=== PATIENT | female | born 1990 | race Caucasian/White ===

== ENCOUNTER 2023-01-01 12:46 | Emergency (ER) | payer OTHER ==
[2023-01-01 13:10] LABS: BASOPHILS % (AUTO) 0.3 %; EOSINOPHILS # (AUTO) 0.2 10^3/uL (0.0-0.7); HCT - HEMATOCRIT 40.5 % (37.0-47.0); HGB - HEMOGLOBIN 13.6 g/dL (12.0-16.0); LYMPHOCYTES # (AUTO) 1.3 10^3/uL (1.5-3.5); LYMPHOCYTES % (AUTO) 13.8 %; MEAN CORPUSCULAR HEMOGLOBIN 28.8 pg (27.0-31.0); MEAN CORPUSCULAR HGB CONC 33.6 g/dL (32.0-36.0); MEAN CORPUSCULAR VOLUME 85.8 fL (81.0-99.0); MEAN PLATELET VOLUME 10.1 fL (7.9-10.8); MONOCYTES % (AUTO) 10.2 %; NEUTROPHILS # (AUTO) 6.9 10^3/uL (1.5-6.6); NEUTROPHILS % (AUTO) 73.3 %; PLT - PLATELET COUNT 302 10^3/uL (130-450); RED BLOOD COUNT 4.72 10^6/uL (4.20-5.40); RED CELL DISTRIBUTION WIDTH 14.3 % (12.0-15.0); WHITE BLOOD COUNT 9.4 x10^3/uL (4.8-10.8)
[2023-01-01 13:24] LABS: ALBUMIN 4.2 g/dL (3.2-5.5); ALBUMIN/GLOBULIN RATIO 1.2 (1.0-2.2); BILIRUBIN,TOTAL 0.4 mg/dL (0.2-1.0); CREATININE 0.6 mg/dL (0.4-1.0); TOTAL PROTEIN 7.7 g/dL (6.7-8.2)
--- NOTE | 2023-01-01 15:21 | ED Physician Documentation ---
History of Present Illness - Stated complaint Stated Complaint: FEMALE - Chief complaint Chief Complaint: Abd Pain - History obtained from History obtained from: Patient - History of Present Illness Timing: Today Pain level max: 0 Pain level now: 0 - Additonal information Additional information: Patient is a 32-year-old female who presents to the emergency department with vaginal bleeding. She is approximately 5 weeks . She has been undergoing IVF. Has not had a previous . No pelvic pain. Nothing makes it better or worse. She states that there were 2 "gushes" of blood earlier today. Review of Systems Constitutional: denies: Fever Respiratory: denies: Cough GI: denies: Abdominal Pain, Nausea, Vomiting, Diarrhea Skin: denies: Rash Musculoskeletal: denies: Neck pain, Back pain Neurologic: denies: Headache PD PAST MEDICAL HISTORY - Past Medical History Past Medical History: No - Past Surgical History Past Surgical History: No - Present Medications Home Medications: Ambulatory Orders Medication Instructions Recorded Confirmed Levothyroxine Sodium [Synthroid] 25 mcg PO DAILY 01/01/23 01/01/23 Magdalene 28 Days` 1 applic PO DAILY 01/01/23 01/01/23 - Allergies Allergies/Adverse Reactions: Allergies Allergy/AdvReac Type Severity Reaction Status Date / Time No Known Drug Allergies Allergy Verified 01/01/23 12:50 - Living Situation Living Situation: reports: With family Living Arrangement: reports: At home - Social History Does the pt smoke?: No Does the pt have substance abuse?: No PD ED PE NORMAL - Vitals Vital signs reviewed: Yes - General General: Alert and oriented X 3, No acute distress - HEENT HEENT: PERRL, Moist mucous membranes - Neck Neck: Supple, no meningeal sign - Cardiac Cardiac: RRR, Strong equal pulses - Respiratory Respiratory: No respiratory distress, Clear bilaterally - Abdomen Abdomen: Soft, Non tender, Non distended - Back Back: No CVA TTP, No spinal TTP - Derm Derm: Warm and dry - Extremities Extremities: No edema, No calf tenderness / cord - Neuro Neuro: Alert and oriented X 3 - Psych Psych: Normal mood, Normal affect Results - Vitals Vitals: Vital Signs - 24 hr 01/01/23 01/01/23 01/01/23 12:50 15:29 15:55 Temperature 36.5 C Heart Rate 84 64 Respiratory 16 16 16 Rate Blood Pressure 119/74 116/67 O2 Saturation 100 97 Oxygen O2 Source Room air - Labs Labs: Laboratory Tests 01/01/23 01/01/23 01/01/23 13:05 13:05 13:05 WBC 9.4 RBC 4.72 Hgb 13.6 Hct 40.5 MCV 85.8 MCH 28.8 MCHC 33.6 RDW 14.3 Plt Count 302 MPV 10.1 Neut # (Auto) 6.9 H Lymph # (Auto) 1.3 L [place] # (Auto) 1.0 Eos # (Auto) 0.2 Baso # (Auto) 0.0 Absolute Nucleated RBC 0.00 Nucleated RBC % 0.0 Sodium 136 Potassium 4.0 Chloride 105 Carbon Dioxide 25 Anion Gap 6.0 BUN 8 Creatinine 0.6 Estimated GFR (MDRD) 115 Glucose 106 H Calcium 9.0 Total Bilirubin 0.4 AST 22 ALT 19 Alkaline Phosphatase 82 Total Protein 7.7 Albumin 4.2 Globulin 3.5 Albumin/Globulin Ratio 1.2 Lipase 44 HCG, Quant 39885.00 Urine Color Urine Clarity Urine pH Ur Specific [place] Urine Protein Urine Glucose (UA) Urine Ketones Urine Occult Blood Urine Nitrite Urine Bilirubin Urine Urobilinogen Ur Leukocyte Esterase Urine RBC Urine WBC Ur Squamous Epith Cells Urine Bacteria Ur Microscopic Review Urine Culture Comments 01/01/23 15:10 WBC RBC Hgb Hct MCV MCH MCHC RDW Plt Count MPV Neut # (Auto) Lymph # (Auto) [place] # (Auto) Eos # (Auto) Baso # (Auto) Absolute Nucleated RBC Nucleated RBC % Sodium Potassium Chloride Carbon Dioxide Anion Gap BUN Creatinine Estimated GFR (MDRD) Glucose Calcium Total Bilirubin AST ALT Alkaline Phosphatase Total Protein Albumin Globulin Albumin/Globulin Ratio Lipase HCG, Quant Urine Color YELLOW Urine Clarity CLEAR Urine pH 6.5 Ur Specific [place] <=1.005 Urine Protein NEGATIVE Urine Glucose (UA) NEGATIVE Urine Ketones NEGATIVE Urine Occult Blood MODERATE H Urine Nitrite NEGATIVE Urine Bilirubin NEGATIVE Urine Urobilinogen 0.2 (NORMAL) Ur Leukocyte Esterase NEGATIVE Urine RBC 6-10 H Urine WBC 0-3 Ur Squamous Epith Cells FEW Squamous Urine Bacteria Few Ur Microscopic Review INDICATED Urine Culture Comments NOT INDICATED - Rads (name of study) OB US Relevant Findings:: Final report received, See rad report PD Medical Decision Making - ED course Complexity details: reviewed results, re-evaluated patient, considered differential, d/w patient ED course: 32-year-old female with vaginal bleeding affecting early . Her hCG is around 15,000. Had ultrasound does show an early intrauterine gestational sac and a yolk sac approximately 5 weeks 5 days. No embryo seen at this time. She will follow-up with her OB for repeat hCG in a few days and likely repeat ultrasound in 7 to 14 days. No pelvic pain. No evidence of ectopic. Patient counseled regarding signs and symptoms for which I believe and urgent re- evaluation would be necessary. Patient with good understanding of and agreement to plan and is comfortable going home at this time This document was made in part using voice recognition software. While efforts are made to proofread this document, sound alike and grammatical errors may occur. PROCEDURE: OB First Trimester w/TV INDICATIONS: 5 wks preg, vaginal bleed OUTSIDE/PRIOR DATING DATA: Last menstrual period (LMP): 11/22/2022. TECHNIQUE: Real-time scanning was performed of the fetus and maternal pelvic organs, with image documentation. Endovaginal scanning was also performed to better visualize the fetus and maternal ovaries. COMPARISON: None. FINDINGS: Intrauterine gestational sac present. mean sac diameter of 1.0 cm corresponding to gestational age of 5 weeks 5 days. A yolk sac is present. Embryo: Not visualized. Heart rate: Not visualized. Other: No perigestational fluid collection. Measurement variability in dating: +/- 4 weeks by LMP, +/- 7 days by mean sac diameter (use before 6 weeks gestation if crown-rump length not able to be measured), +/- 5 days by crown-rump length (6- 12 weeks gestation). Maternal organs: Ovaries are unremarkable. Right corpus luteum. IMPRESSION: Intrauterine of uncertain viability. Early intrauterine gestational sac containing a yolk sac with size corresponding to a gestational age of 5 weeks 5 days. No embryo seen at this time. Recommend follow-up ultrasound to 14 days to assess for viability. Departure - Departure Disposition: 01 Home, Self Care Clinical Impression: Vaginal bleeding affecting early Condition: Good Instructions: ED Miscarriage Poss Follow-Up: PAULINE ZAMARRIPA MD [Physician No Access] - Within 1 week Comments: Please follow-up with your OB for further care. Your hCG level today is 15,382. Your ultrasound shows evidence of an intrauterine with a gestational sac and a yolk sac. Approximately 5 weeks and 5 days. It is recommended you have a repeat hCG level with your OB in approximately 3 days to determine if this is going up or down. They may want to repeat your ultrasound in 1 week as well. Please return if you worsen. Discharge Date/Time: 01/01/23 16:13
[2023-01-01 15:24] LABS: BILIRUBIN,URINE NEGATIVE (NEGATIVE); CLARITY,URINE CLEAR (CLEAR); GLUCOSE, URINE (UA) NEGATIVE (NEGATIVE); KETONES,URINE (UA) NEGATIVE (NEGATIVE); LEUKOCYTE ESTERASE, URINE NEGATIVE (NEGATIVE); NITRITE,URINE NEGATIVE (NEGATIVE); OCCULT BLOOD,URINE MODERATE (NEGATIVE); PH,URINE 6.5 PH (5.0-7.5); PROTEIN,URINE NEGATIVE (NEGATIVE); UROBILINOGEN,URINE 0.2 (NORMAL) E.U./dL (NORMAL)
[2023-01-01 15:34] LABS: BACTERIA,URINE Few /HPF (None Seen); SQUAMOUS EPITHELIAL CELL,UR FEW Squamous (<= Few); WBC,URINE 0-3 /HPF (0-5)
[2023-01-01 15:37] VITALS: BP 116/67
--- NOTE | 2023-01-01 17:55 | Ultrasound Report ---
PROCEDURE: OB First Trimester w/TV INDICATIONS: 5 wks preg, vaginal bleed OUTSIDE/PRIOR DATING DATA: Last menstrual period (LMP): 11/22/2022. TECHNIQUE: Real-time scanning was performed of the fetus and maternal pelvic organs, with image documentation. Endovaginal scanning was also performed to better visualize the fetus and maternal ovaries. COMPARISON: None. FINDINGS: Intrauterine gestational sac present. mean sac diameter of 1.0 cm corresponding to gestati onal age of 5 weeks 5 days. A yolk sac is present. Embryo: Not visualized. Heart rate: Not visualized. Other: No perigestational fluid collection. Measurement variability in dating: +/- 4 weeks by LMP, +/- 7 days by mean sac diameter (use before 6 weeks gestation if crown-rump length not able to be measured), +/- 5 days by crown-rump length (6-12 weeks gestation). Maternal organs: Ovaries are unremarkable. Right corpus luteum. IMPRESSION: Intrauterine of uncertain viability. Early intrauterine gestational sac containing a yolk s ac with size corresponding to a gestational age of 5 weeks 5 days. No embryo seen at this time. Recom mend follow-up ultrasound to 14 days to assess for viability. Reviewed by: Yehuda Ray MD on 01/01/2023 5:54 PM PDT Approved by: Yehuda Ray MD on 01/01/2023 5:54 PM PDT Station ID: [id number]
== END 2023-01-01 16:13 | disposition home or self-care (01) ==
LOC: ED 12:46
DX: O20.9 Hemorrhage in early pregnancy, unspecified (principal); Z3A.01 Less than 8 weeks gestation of pregnancy
CPT/HCPCS: 36415; 80053; 81001; 81003; 83690; 84702; 85025; 87086; 99283; 99284